=== PATIENT | female | born 1945 | race Caucasian/White ===

== ENCOUNTER → 2024-06-15 09:46 | Outpatient (REF) | payer MEDICARE, OTHER, SELFPAY | LOC: RCS 09:46 | PROVIDERS: ATTENDING PHYSICIAN Internal Medicine Cardiovascular Disease; FAMILY PHYSICIAN Family Medicine | DX: I34.0 Nonrheumatic mitral (valve) insufficiency (principal); I35.0 Nonrheumatic aortic (valve) stenosis | CPT/HCPCS: 93306 ==

== ENCOUNTER → 2025-05-11 10:24 | Outpatient (REF) | payer MEDICARE, OTHER, SELFPAY | LOC: RAD 10:24 | PROVIDERS: ATTENDING PHYSICIAN Internal Medicine Cardiovascular Disease; FAMILY PHYSICIAN Family Medicine | DX: I27.20 Pulmonary hypertension, unspecified (principal) | CPT/HCPCS: 71250 ==

== ENCOUNTER 2025-06-01 09:48 | Emergency (ER) | payer MEDICARE, OTHER, SELFPAY ==
[2025-06-01 09:57] VITALS: BP 151/68
--- NOTE | 2025-06-01 11:36 | ED.SKININJ ---
HPI-Injury
General
Chief Complaint: Skin Problem
Source: patient
Exam Limitations: none
Time Seen by Provider: 06/01/25 11:06
History of Present Illness-Injury
Initial Injury comments:
80-year-old female on Eliquis presents for bleeding wound on her right leg from a recent Mohs procedure. The lowest was left open initially and closed the next day with sutures. She had to go back as the wound kept bleeding. They added some more
sutures. She presents today with persistent bleeding. She is concerned as her last hemoglobin check was in the 8 range. She does notes that she feels tired. No shortness of breath
Past History
Past History
ED Past Medical History: HTN, Hypercholesterolemia and NIDDM
ED Past Surgical History: , Gynecological and Other
Social History
Tobacco: Non-smoker
Living: with family
Phy Exam
Physical Exam
Physical Exam:
General: Well-appearing female no acute distress
Skin: Sutures noted in the right lateral thigh there are 2 areas that are slowly bleeding in between sutures.
Course
Orders/Labs/Results
Orders:
Orders
06/01/25 12:00
Complete Blood Count/With Diff Urgent
Comprehensive Metabolic Panel Urgent
Abnormal Lab Results
06/01/25
12:00
RBC 3.37 L 10^6/uL
(4.20-5.40)
Hgb 9.2 L g/dL
(12.0-16.0)
Hct 28.9 L %
(37.0-47.0)
MCHC 31.8 L g/dL
(33.0-37.0)
RDW 16.7 H %
(11.5-14.5)
Plt Count 406 H 10^3/uL
(130-400)
Absolute Lymphs (auto) 1.0 L 10^3/uL
(1.2-3.4)
Lymphocytes % 20.2 L %
(20.5-51.1)
Monocytes % 9.6 H %
(1.7-9.3)
Chloride 112 H mmol/L
(98-107)
Carbon Dioxide 21 L mmol/L
(22-30)
BUN 32 H mg/dl
(7-17)
Creatinine 1.8 H mg/dL
(0.6-1.0)
Glucose 127 H mg/dl
(70-99)
Calcium 10.4 H mg/dl
(8.4-10.2)
06/01/25 12:00
06/01/25 12:00
Vital Signs
Initial and Last Documented VS:
Initial Vital Signs
Temp Pulse Resp BP Pulse Ox
98.5 F 78 16 151/68 98
06/01/25 09:57 06/01/25 09:57 06/01/25 09:57 06/01/25 09:57 06/01/25 09:57
Last Documented Vital Signs
Temp Pulse Resp BP Pulse Ox
98.5 F 78 16 151/68 98
06/01/25 09:57 06/01/25 09:57 06/01/25 09:57 06/01/25 09:57 06/01/25 11:37
MDM/Problems Addressed
Differential Diagnosis Includes:
Bleeding from recent Mohs procedure between sutures. The area was cleansed with saline and anesthetized with 1% lidocaine with epinephrine. Additional 2.40 Prolene sutures were placed to provide hemostasis. Recheck labs
*Pulse Oximetry
SaO2: 98
Oxygen Mode of Delivery: Room air
Patient hypoxic: no
*Critical Care Note
Total Time (30-74mins, 75-104mins- exclusive of procedures): Not Applicable
Update Note
Update Note:
Hemoglobin 9.2. She states her most recent value was in the eights. Vital signs are stable. No further bleeding from the wound. A dressing was applied stable for discharge and follow-up with dermatology
ED Attending Note
-
Portions of this chart may have been created with voice recognition software.� Occasional wrong word or��sound alike� substitutions may have occurred due to the inherent limitations of voice recognition software.
Discharge Plan
Departure
Patient Disposition: Home (Routine Discharge)
Date of Disposition: 06/01/25
Time of Disposition: 12:46
Patient with high blood pressure during this ER visit?: No
Discharge Problem:
Bleeding from wound
Prescriptions:
No Action
atorvastatin [Lipitor] 40 MG tablet
40 mg PO QPM
amlodipine [Norvasc] 5 MG tablet
5 mg PO DAILY
losartan-hydrochlorothiazide 1 TAB tablet
100 mg PO DAILY
Patient Comments:
pt unsure of dose
pioglitazone 30 MG tablet
30 mg PO DAILY
hydrochlorothiazide 25 MG tablet
25 mg PO DAILY
apixaban [Eliquis] 5 MG tablet
5 mg PO BID
Referrals:
Ravindra Ramirez MD [Family Provider, Family Practice]
Activity Restrictions/Additional Instructions:
Follow-up with dermatology as planned. Return if worse otherwise
Interventions
Interventions:
*Risk Screen - Suicide Last Done: 06/01/25 09:57
*General Assessment Last Done: 06/01/25 11:58
*Neglect/Abuse Screening Last Done: 06/01/25 09:57
*ED- Fall Risk Assessment Last Done: 06/01/25 11:58
*ED COVID-19 Vaccine History Last Done: 06/01/25 11:58
ED-Skin Assessment Last Done: 06/01/25 12:00
Discharge Date and Time
Print Language: THAI
[2025-06-01 12:24] LABS: Hematocrit 28.9 % (37.0-47.0); Hemoglobin 9.2 g/dL (12.0-16.0); Mean Corp Hgb Conc. 31.8 g/dL (33.0-37.0); Mean Corpuscular Volume 85.8 fL (81.0-99.0); Nucleated Red Blood Cells % 0 %; Platelet Count 406 10^3/uL (130-400); Red Cell Dist. Width 16.7 % (11.5-14.5)
[2025-06-01 12:38] LABS: ALT (SGPT) < 10 U/L (0-35); AST (SGOT) 14 U/L (14-36); Albumin 4.2 g/dl (3.5-5.0); Alkaline Phosphatase 88 U/L (38-126); Blood Urea Nitrogen 32 mg/dl (7-17); Calcium 10.4 mg/dl (8.4-10.2); Carbon Dioxide 21 mmol/L (22-30); Chloride 112 mmol/L (98-107); Glucose 127 mg/dl (70-99); Potassium 4.5 mmol/L (3.5-5.1); Sodium 143 mmol/L (135-145); Total Protein 7.1 g/dl (6.3-8.2); eGFR 28.31
[2025-06-01 12:55] VITALS: BP 153/67
== END 2025-06-01 12:56 | disposition home or self-care (01) ==
LOC: EMR 09:48
PROVIDERS: Physician Assistant; EMERGENCY PHYSICIAN Emergency Medicine; FAMILY PHYSICIAN Family Medicine
DX: L76.21 Postprocedural hemorrhage of skin and subcutaneous tissue following a dermatologic procedure (principal); Y83.8 Other surgical procedures as the cause of abnormal reaction of the patient, or of later complication, without mention of misadventure at the time of the procedure; E11.9 Type 2 diabetes mellitus without complications; E78.00 Pure hypercholesterolemia, unspecified; I10 Essential (primary) hypertension; Z79.01 Long term (current) use of anticoagulants
CPT/HCPCS: 12001; 99283; 80053; 85025

== ENCOUNTER → 2025-06-19 14:01 | Outpatient (REF) | payer MEDICARE, OTHER, SELFPAY | LOC: WDC 14:01 | PROVIDERS: ATTENDING PHYSICIAN Dermatology; FAMILY PHYSICIAN Family Medicine | DX: Z12.31 Encounter for screening mammogram for malignant neoplasm of breast (principal) | CPT/HCPCS: 77063; 77067 ==

== ENCOUNTER → 2025-07-08 16:13 | Outpatient (REF) | payer MEDICARE, OTHER, SELFPAY ==
[2025-07-08 10:42] LABS: Hematocrit 24.5 % (37.0-47.0); Hemoglobin 7.8 g/dL (12.0-16.0); Mean Corp Hgb Conc. 31.8 g/dL (33.0-37.0); Mean Corpuscular Volume 88.1 fL (81.0-99.0); Platelet Count 423 10^3/uL (130-400); Red Cell Dist. Width 18.3 % (11.5-14.5)
== END ==
LOC: OIDL 16:13
PROVIDERS: ATTENDING PHYSICIAN Nurse Practitioner Adult Health
DX: D64.9 Anemia, unspecified (principal); R53.82 Chronic fatigue, unspecified; D63.1 Anemia in chronic kidney disease; E53.9 Vitamin B deficiency, unspecified
CPT/HCPCS: 85025

== ENCOUNTER 2025-07-26 06:12 | Day surgery (SDC) | payer MEDICARE, OTHER, SELFPAY ==
[2025-07-26 10:03] LABS: Glucose - Point of Care 91 mg/dl (70-99)
== END 2025-07-26 11:06 | disposition home or self-care (01) ==
LOC: GI 06:12
PROVIDERS: ATTENDING PHYSICIAN Internal Medicine Gastroenterology; FAMILY PHYSICIAN Family Medicine
DX: D50.9 Iron deficiency anemia, unspecified (principal); K64.8 Other hemorrhoids; Q43.8 Other specified congenital malformations of intestine; K44.9 Diaphragmatic hernia without obstruction or gangrene; K31.89 Other diseases of stomach and duodenum
CPT/HCPCS: 45378; 43239; 82962; 88305; 88342